=== PATIENT | female | born 1985 ===

== ENCOUNTER 2021-08-21 08:59 | Emergency (ER) | payer OTHER ==
[~2021-08-21] VITALS: Ht 160 cm; Wt 73.0 kg
[~2021-08-21 08:59] MED LIST: PRENATAL TABLE1 EAC1 PO
== END 2021-08-21 13:32 | disposition home or self-care (01) ==
LOC: ER 08:59
DX: O21.0 Mild hyperemesis gravidarum (principal); Z3A.09 9 weeks gestation of pregnancy

== ENCOUNTER 2021-09-01 20:45 | Inpatient (IN) | payer OTHER ==
[~2021-09-01] VITALS: Ht 160 cm; Wt 71.7 kg
== END 2021-09-04 17:11 | disposition home or self-care (01) | DRG 833 ==
LOC: OB/GYN 20:45
PROVIDERS: ADMIT Obstetrics & Gynecology; ATTEND Obstetrics & Gynecology
PROC: 4A1HXCZ Monitoring of Products of Conception, Cardiac Rate, External Approach (ICD-10-PCS; principal; 2021-09-01)
PROC: BW40ZZZ Ultrasonography of Abdomen (ICD-10-PCS; 2021-09-01)
PROC: BU4CZZZ Ultrasonography of Uterus and Ovaries (ICD-10-PCS; 2021-09-01)
PROC: B54DZZZ Ultrasonography of Bilateral Lower Extremity Veins (ICD-10-PCS; 2021-09-02)
DX: O21.0 Mild hyperemesis gravidarum (principal); Z3A.01 Less than 8 weeks gestation of pregnancy; Z20.822 Contact with and (suspected) exposure to COVID-19

== ENCOUNTER 2021-10-23 11:57 | Outpatient (CLI) | payer OTHER | END 2021-10-23 12:36 | disposition home or self-care (01) | LOC: PRENATAL 11:57 | PROVIDERS: ATTEND Obstetrics & Gynecology Maternal & Fetal Medicine | DX: O36.80X0 Pregnancy with inconclusive fetal viability, not applicable or unspecified (principal); Z36.0 Encounter for antenatal screening for chromosomal anomalies; Z3A.13 13 weeks gestation of pregnancy ==

== ENCOUNTER → 2021-11-17 | Outpatient (CLI) | payer OTHER | END | disposition home or self-care (01) | LOC: PRENATAL 15:48 | PROVIDERS: ATTEND Obstetrics & Gynecology Maternal & Fetal Medicine | DX: O35.0XX0 Maternal care for (suspected) central nervous system malformation in fetus, not applicable or unspecified (principal); O28.1 Abnormal biochemical finding on antenatal screening of mother; O34.219 Maternal care for unspecified type scar from previous cesarean delivery; Z3A.20 20 weeks gestation of pregnancy ==

== ENCOUNTER 2022-01-02 05:22 | Outpatient (CLI) | payer OTHER ==
[~2022-01-02] VITALS: Ht 160 cm; Wt 82.1 kg
[2022-01-02] MEDS ORDERED: PRENATAL TABLE1 EAC1 (05:43)
== END 2022-01-02 14:08 | disposition home or self-care (01) ==
LOC: OBS/DEL 05:22
PROVIDERS: ATTEND Obstetrics & Gynecology
DX: Z34.82 Encounter for supervision of other normal pregnancy, second trimester (principal)